=== PATIENT | male | born 1985 | race Caucasian/White ===

== ENCOUNTER 2018-11-27 18:00 | Emergency (ER) | payer SELFPAY ==
[~2018-11-27] VITALS: Ht 167.6 cm; Wt 75.9 kg
[~2018-11-27 18:00] MED LIST: ESCI10TA10 PO; POTA473S4 PO
[2018-11-27 18:07] VITALS: BP 122/82
--- NOTE | 2018-11-27 18:45 | NUR ---
REPORT RECEIVED FROM AUGUSTA JACOBS. ASSUMED CARE OF PT. PT CURRENTLY SITTING ON [facility]. NAD NOTED. SKIN PWD. RESP EVEN AND EQAUL. PT DENIES PAIN/NEEDS AT THIS TIME.
== END 2018-11-27 19:07 | disposition home or self-care (01) ==
LOC: ED 19:00
DX: S02.2XXA Fracture of nasal bones, initial encounter for closed fracture (principal); J02.8 Acute pharyngitis due to other specified organisms; B97.89 Other viral agents as the cause of diseases classified elsewhere; F17.200 Nicotine dependence, unspecified, uncomplicated; Y04.8XXA Assault by other bodily force, initial encounter; Y93.89 Activity, other specified; Y92.009 Unspecified place in unspecified non-institutional (private) residence as the place of occurrence of the external cause; Y99.8 Other external cause status
CPT/HCPCS: 70160; 99283

== ENCOUNTER 2019-01-03 09:37 | Emergency (ER) | payer MEDICAID, OTHER ==
[~2019-01-03] VITALS: Ht 167.6 cm; Wt 74.0 kg
[2019-01-03] MEDS ORDERED: HYDROmorphone 2 MG/ML, 1ML ONE (10:23)
[2019-01-03] MEDS ORDERED: ONDANSETRON 2MG/ML, 2ML ONE (10:24)
[2019-01-03] MEDS ORDERED: ONDANSETRON 2MG/ML, 2ML IVPush ONE (10:30)
[2019-01-03] MEDS ORDERED: SODIUM CHLORIDE FLUSH 10ML SYR IVF ONE (10:30)
[2019-01-03] MEDS: HYDROmorphone 2 MG/ML, 1ML IVPush PRN ×2 (10:37→10:59)
--- NOTE | 2019-01-03 10:42 | NUR ---
THIS IS A 33 YO MALE WHO PRESENTS TO THE ER C/O RUQ AND RIGHT FLANK PAIN X 1 HOUR. PT HAS HX OF KIDNEY STONES AND FEELS THIS IS SIMILAR PAIN. PT RATES THE PAIN AT 8/10. PT MEDICATED ORDERED FOR PAIN/NAUSEA. URINE SAMPLE OBTAINED AND SENT TO LAB. PT DENIES VOMITING OR DIARRHEA. PT AO X 4. SKIN PWD. RESP EVEN AND EQAUL. WILL COTN TO MONITOR PT.
[2019-01-03 10:45] LABS: BASOPHILS # (AUTO) 0.05 x10^3/uL (0-0.1); BASOPHILS % (AUTO) 1 % (0-1); EOSINOPHILS # (AUTO) 0.52 x10^3/uL (0-0.4); EOSINOPHILS % (AUTO) 7 % (1-7); LYMPHOCYTES # (AUTO) 2.68 x10^3/uL (1-3.4); LYMPHOCYTES % (AUTO) 36 % (22-44); MD NO; MEAN CORPUSCULAR HEMOGLOBIN 29.2 pg (27.5-34.5); MEAN CORPUSCULAR HGB CONC 32.9 g/dL (33.2-36.2); MEAN CORPUSCULAR VOLUME 88.7 fL (81-97); MEAN PLATELET VOLUME 7.2 fL (7.4-10.4); MONOCYTES # (AUTO) 0.78 x10^3/uL (0.2-0.8); MONOCYTES % (AUTO) 10 % (2-9); NEUTROPHILS # (AUTO) 3.47 x10^3/uL (1.8-6.8); NEUTROPHILS % (AUTO) 46 % (42-75); PLATELET COUNT 413 x10^3/uL (130-400); RED CELL DISTRIBUTION WIDTH 13.6 % (9.4-14.8)
[2019-01-03 10:50] LABS: ALANINE AMINOTRANSFERASE 24 U/L (12-78); ALBUMIN 3.2 g/dL (3.4-5.0); ANION GAP 2 mmol/L (5-15); CALCIUM 8.6 mg/dL (8.5-10.1); CHLORIDE 106 mmol/L (98-107); CREATININE 1.01 mg/dL (0.7-1.3)
[2019-01-03 10:52] LABS: ALKALINE PHOSPHATASE 95 U/L (45-117); BILIRUBIN,TOTAL 0.3 mg/dL (0.2-1.0); TOTAL PROTEIN 6.7 g/dL (6.4-8.2)
[2019-01-03 10:55] LABS: MICROSCOPIC INDICATED
[2019-01-03 11:10] LABS: CULTURE INDICATED? NO
--- NOTE | 2019-01-03 11:26 | NUR ---
PT WAS C/O CONT 02/26 PAIN. PT WAS REMEDICATD PER DEC. PT NOW DOSING ON GURNEY. NAD NOTED. SKIN PWD. RESP EVEN AND EQUAL. PT ON CONT BP AND O2 MONITORS. CALL LIGHT WITHIN REACH. WILL CONT TO MONITOR PT.
--- NOTE | 2019-01-03 12:00 | NUR ---
CARE FOR DC ONLY PROVIDED. PT SITTING UP ON GURENY, NO ACUTE DISTRESS NOTED. PT CURRENTLY DENIES PAIN. IV DC'D WITH CANNULA INTACT. REVIEWED DC INSTRUCTIONS WITH PT. UNDERSTANDING VERBALIZED. PT TO LEAVE AMB.
[2019-01-03 12:01] VITALS: BP 122/73
== END 2019-01-03 12:04 | disposition home or self-care (01) ==
LOC: ED 11:12
DX: N13.2 Hydronephrosis with renal and ureteral calculous obstruction (principal); R31.9 Hematuria, unspecified; Z87.442 Personal history of urinary calculi
CPT/HCPCS: 36415; 74176; 80053; 81001; 85025; 96374; 96375; 99284; J1170; J2405

== ENCOUNTER 2019-02-01 00:45 | Emergency (ER) | payer SELFPAY ==
[~2019-02-01] VITALS: Ht 170.2 cm; Wt 73.1 kg
[2019-02-01 00:47] VITALS: BP 117/81
--- NOTE | 2019-02-01 01:14 | NUR ---
PT HAVING RIGHT LOWER BACK PAIN. HAVING PAINFUL URINATION. STATES "WAS HERE FOR KIDNEY STONES 2 MONTHS AGO THINKS HAS ANOTHER ONE.
[2019-02-01 01:24] LABS: MEAN CORPUSCULAR HEMOGLOBIN 30.1 pg (27.5-34.5); MEAN CORPUSCULAR HGB CONC 34.2 g/dL (33.2-36.2); MEAN CORPUSCULAR VOLUME 87.9 fL (81-97); MEAN PLATELET VOLUME 7.6 fL (7.4-10.4); PLATELET COUNT 380 x10^3/uL (130-400); RED BLOOD COUNT 4.95 x10^6/uL (4.38-5.82); RED CELL DISTRIBUTION WIDTH 13.8 % (9.4-14.8)
[2019-02-01 01:27] LABS: ALBUMIN 3.1 g/dL (3.4-5.0); ANION GAP 6 mmol/L (5-15); CALCIUM 8.5 mg/dL (8.5-10.1); CHLORIDE 112 mmol/L (98-107); CREATININE 0.91 mg/dL (0.7-1.3)
[2019-02-01] MEDS ORDERED: MORPHINE SULFATE 4 MG/ML, 1ML IVPush PRN (01:30)
[2019-02-01] MEDS ORDERED: SODIUM CHLORIDE FLUSH 10ML SYR IVF ONE (01:30)
[2019-02-01] MEDS ORDERED: KETOROLAC 30 MG/1 ML IVPush ONE (01:30)
[2019-02-01] MEDS ORDERED: ONDANSETRON 2MG/ML, 2ML IVPush ONE (01:30)
[2019-02-01 01:38] LABS: MD YES
[2019-02-01 01:40] LABS: <RBC MORPHOLOGY> NORMAL; BAND#(MANUAL) 0.12 x10^3/uL; BANDS%(MANUAL) 1 % (0-7); LYMPHS% (MANUAL) 20 % (22-44); MONOS#(MANUAL) 0.84 x10^3/uL (0.3-2.7); MONOS% (MANUAL) 7 % (2-9); SEG#(MANUAL) 8.64 x10^3/uL (1.8-6.8); SEGS% (MANUAL) 72 % (42-75)
[2019-02-01 01:41] LABS: <PLATELET ESTIMATE> ADEQUATE; <PLT MORPHOLOGY> NORMAL PLT MORPH
[2019-02-01] MEDS ORDERED: KETOROLAC 30 MG/1 ML ONE (01:42)
[2019-02-01] MEDS ORDERED: MORPHINE SULFATE 4 MG/ML, 1ML ONE (01:42)
[2019-02-01] MEDS ORDERED: ONDANSETRON 2MG/ML, 2ML ONE (01:42)
--- NOTE | 2019-02-01 02:24 | NUR ---
Patient/Caregiver given discharge instructions and they have confirmed that they understand the instructions. Patient ambulatory with steady gait.
== END 2019-02-01 02:27 | disposition home or self-care (01) ==
LOC: ED 02:06
DX: R10.31 Right lower quadrant pain (principal)
CPT/HCPCS: 36415; 76770; 80048; 82040; 85025; 93005; 96374; 96375; 99284; J1885; J2405

== ENCOUNTER 2019-04-18 03:35 | Emergency (ER) | payer MEDICAID ==
[~2019-04-18] VITALS: Ht 170.2 cm; Wt 74.9 kg
[2019-04-18 03:36] VITALS: BP 115/77
[2019-04-18] MEDS ORDERED: PROPARACAINE OPHTH 0.5%, 15ML ONE (04:06)
[2019-04-18] MEDS ORDERED: FLUORESCEIN OPHTHALMIC 1 MG STRIP ONE (04:06)
[2019-04-18] MEDS ORDERED: DIPH,PERTUSS(ACELL),TET VAC/PF 0.5 ML IM-VACC ONE ×2 (05:21→05:30)
--- NOTE | 2019-04-18 05:42 | NUR ---
PT MEDICATED PER DEC. PT D/C WITH D/C SUMMARY AND SCRIPTS. ALL QUESTIONS ANSWERED. PT AMBULATES TO REGISTRATION DESK WITH STEADY GAIT FOR D/C HOME.
== END 2019-04-18 05:44 | disposition home or self-care (01) ==
LOC: ED 05:30
DX: S05.02XA Injury of conjunctiva and corneal abrasion without foreign body, left eye, initial encounter (principal); X58.XXXA Exposure to other specified factors, initial encounter; Y93.89 Activity, other specified; Y92.89 Other specified places as the place of occurrence of the external cause; Y99.8 Other external cause status
CPT/HCPCS: 90471; 90715; 99283

== ENCOUNTER 2020-01-12 11:38 | Emergency (ER) | payer MEDICAID ==
[~2020-01-12] VITALS: Ht 167.6 cm; Wt 86.9 kg
[2020-01-12 12:19] VITALS: BP 144/77
[2020-01-12] MEDS ORDERED: DEXAMETHASONE 4 MG/ML, 5ML ONE (12:37)
[2020-01-12] MEDS ORDERED: DEXAMETHASONE 4 MG TABLET ONE ×2 (12:41→12:45)
[2020-01-12] MEDS ORDERED: DEXAMETHASONE 4 MG TABLET PO ONE (13:00)
== END 2020-01-12 14:41 | disposition home or self-care (01) ==
LOC: ED 13:07
DX: J02.9 Acute pharyngitis, unspecified (principal); H92.01 Otalgia, right ear; F17.200 Nicotine dependence, unspecified, uncomplicated
CPT/HCPCS: 87081; 87880; 99283

== ENCOUNTER 2020-01-15 20:34 | Emergency (ER) | payer MEDICAID ==
[~2020-01-15] VITALS: Ht 167.6 cm; Wt 84.0 kg
--- NOTE | 2020-01-15 20:55 | NUR ---
THIS IS A 34 YO M W/ C/O SOB AND PRODUCTIVE COUGH W/ DARK, THICK SPUTUM X2 DAYS. PT STATES HE WAS SEEN 3 DAYS AGO FOR SORE THROAT, HAD A NEGATIVE STREP TEST. PT STATES SINCE THEN HE HAS BEEN "LOOSING HIS VOICE". DENIES SORE THROAT AT THIS TIME. VS STABLE, NADN. PT IS RESTING ON GURNEY CONNECTED TO MONITORING AND CALL LIGHT IN REACH. AWAITING ED EVAL.
[2020-01-15 21:56] VITALS: BP 131/74
== END 2020-01-15 21:57 | disposition home or self-care (01) ==
LOC: ED 21:12
DX: B34.9 Viral infection, unspecified (principal); H92.09 Otalgia, unspecified ear; R94.31 Abnormal electrocardiogram [ECG] [EKG]; F17.210 Nicotine dependence, cigarettes, uncomplicated
CPT/HCPCS: 71045; 93005; 99283

== ENCOUNTER 2020-06-19 17:12 | Emergency (ER) | payer MEDICAID ==
[~2020-06-19] VITALS: Ht 165.1 cm; Wt 76.8 kg
[2020-06-19 17:15] VITALS: BP 119/82
--- NOTE | 2020-06-19 18:01 | NUR ---
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 AJAY
[2020-06-19] MEDS ORDERED: DIPH,PERTUSS(ACELL),TET VAC/PF 0.5 ML IM-VACC ONE ×2 (18:44→19:00)
[2020-06-19] MEDS ORDERED: NEOSPORIN OINT. PKT 1 PACKET ONE (18:48)
== END 2020-06-19 20:15 | disposition home or self-care (01) ==
LOC: ED 19:40
DX: S80.811A Abrasion, right lower leg, initial encounter (principal); S80.851A Superficial foreign body, right lower leg, initial encounter; F17.210 Nicotine dependence, cigarettes, uncomplicated; W22.8XXA Striking against or struck by other objects, initial encounter; Y93.89 Activity, other specified; Y92.410 Unspecified street and highway as the place of occurrence of the external cause; Y99.8 Other external cause status
CPT/HCPCS: 90471; 90715; 99283; 99406